=== PATIENT | female | born 2000 | race Two or more races ===

== ENCOUNTER 2020-05-28 17:13 | Emergency (ER) | payer OTHER ==
[~2020-05-28] VITALS: Ht 154.9 cm; Wt 64.7 kg
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
[2020-05-28 19:41] VITALS: BP 127/66
== END 2020-05-28 19:44 | disposition home or self-care (01) ==
LOC: M ED 17:13
DX: S52.611A Displaced fracture of right ulna styloid process, initial encounter for closed fracture (principal); V43.52XA Car driver injured in collision with other type car in traffic accident, initial encounter; Y92.410 Unspecified street and highway as the place of occurrence of the external cause; Y93.9 Activity, unspecified; Y99.9 Unspecified external cause status